=== PATIENT | male | born 1950 | race Caucasian/White ===

== ENCOUNTER 2024-02-10 13:40 | Outpatient (CLI) | payer MEDICARE, SELFPAY ==
--- NOTE | 2024-02-10 14:51 | ECG_ITS ---
Test Date: 2024-02-10 15:08:19 Measurements Intervals Basile Rate: 57 P: -28 TN: 217 QRS: 63 QRSD: 105 T: 44 QT: 404 QTc: 394 Interpretive Statements SINUS BRADYCARDIA WITH FIRST DEGREE AV BLOCK No previous ECG available for comparison Electronically Signed On 02-11-2024 11:36:11 CDT by Pieter Bourne M.D.
[2024-02-10 15:30] LABS: Basophils Absolute Auto 0.1 K/mm3 (0.0-0.1); Basophils Percent Auto 0.9 % (0.2-1.2); Eosinophils Absolute Auto 0.3 K/mm3 (0-0.3); Eosinophils Percent Auto 3.6 % (0-4.4); Hematocrit 47.5 % (42.0-52.0); Hemoglobin 16.3 g/dL (14.0-18.0); Immature Granulocyte Absolute 0.02 K/mm3 (0.00-0.031); Immature Granulocyte Percent A 0.2 % (0-0.5); Lymphocytes Absolute Auto 3.19 K/mm3 (0.9-3.2); Lymphocytes Percent Auto 35.9 % (18.3-44.2); Mean Corpuscular HGB Conc 34.3 g/dl (32-36); Mean Corpuscular Volume 87.3 fl (80-100); Mean Platelet Volume 9.8 fl (7.4-10.4); Monocytes Absolute Auto 0.8 K/mm3 (0.1-0.6); Monocytes Percent Auto 8.7 % (2.6-8.5); Neutrophils Absolute Auto 4.5 K/mm3 (1.3-6.7); Neutrophils Percent Auto 50.7 % (45.5-73.1); Platelet Count Result 262 k/mm3 (150-375); Red Blood Count 5.44 M/mm3 (4.6-6.20); Red Cell Distribution Width 14.2 % (11.5-14.5); White Blood Count 8.9 K/mm3 (4.5-10.0)
[2024-02-10 15:39] LABS: Albumin Level 4.4 g/dL (3.5-5.1); Anion Gap 8 mmol/L (4-12); Blood Urea Nitrogen 21 mg/dL (9-20); Calcium 9.7 mg/dL (8.4-10.2); Carbon Dioxide 28 mmol/L (22-30); Chloride 100 mmol/L (98-107); Estimated Glomerular Filt Rate > 60; Glucose 125 mg/dL (65-110); Potassium 4.1 mmol/L (3.4-5.0); Sodium 136 mmol/L (137-145)
[2024-02-10 15:44] LABS: Urine Cotinine NEGATIVE
[2024-02-10 16:50] LABS: Hemoglobin A1C 6.8 % (<5.7)
== END 2024-02-10 13:41 | disposition home or self-care (01) ==
LOC: ANHSURGERY 13:45
PROVIDERS: PCP Family Medicine; Visit Provider Orthopaedic Surgery
DX: M16.11 Unilateral primary osteoarthritis, right hip (principal); Z01.818 Encounter for other preprocedural examination; I44.0 Atrioventricular block, first degree
CPT/HCPCS: 80048; 80307; 82040; 83036; 85025; 87081; 93005

== ENCOUNTER 2024-02-29 00:39 | Day surgery (SDC) | payer MEDICARE, SELFPAY ==
--- NOTE | 2024-02-10 14:24 | PC.NURSE ---
Report to the Outpatient Waiting Room, entrance under the green pavilion located off [facility], at time __6 AM on date _02/29/24 . Planned Procedure Time: __7:30 AM .? Time changes happen often and if your time is changed the preop area will call you the afternoon before. - You and your visitor will be asked to self-screen and do not enter if you have any COVID symptoms. Please call surgeon if you need to reschedule. - A mask is optional within the hospital at this time. Patients may have clear liquids (water, carbonated beverages, clear teas, apple juice) until 3 hours prior to surgery ( 4:30 AM)with a maximum of 20 ounces. - No food from midnight until time of surgery and no smoking - Infants may have breast milk until 4 hours before surgery, infant formula 6 hours prior to surgery. - Children will be allowed to drink immediately following surgery.? If applicable, please bring a bottle or sippy cup to assist with drinking. Juice, water, soda, and popsicles are readily available.? For infants on formula, please bring formula the day of surgery.? Pacifiers are allowed. Take only the following medications with a SIP of water on the morning of surgery: AMLODIPINE,DULOXETINE,LEVOTHYROXINE,PROPRANOLOL DO NOT STOP ANY OF YOUR OTHER PRESCRIPTION MEDICATIONS PRIOR TO SURGERY EXCEPT THE FOLLOWING Medications to discontinue per physician ____HOLD ALL VITAMINS AND SUPPLEMENTS 3 DAYS PRE OP Date to take last dose__02/25/24 Please no make-up, nail swedish, hairspray, perfume, deodorant, or body powder the day of surgery.? No jewelry (including any body piercings) or valuables the day of surgery, leave them at home.? Please take a shower or bath the night before, or the morning of, surgery with an antibacterial soap.? Wear comfortable, loose fitting clothing.? Children are encouraged to wear pajamas. - Jewelry must be removed prior to entering the operating room.? Rings and piercings that are not removed may be cut off. - The hospital will not accept responsibility for valuables.? - Please leave all valuables, including medications, at home the day of surgery. If you are going home after surgery, a licensed trailer driver must drive you home.? - NO public transportation without another adult if you receive anesthesia. - We recommend that an adult stay with you for 24 hours following discharge. - We also recommend that you do not drive, make important decision, drink alcoholic beverages, or take any drugs that were not prescribed by your health care provider for at least 24 hours after your discharge time. Follow any additional instructions given to you from your surgeon. VERBAL AND WRITTEN instructions given to __PATIENT and asked if any additional questions and then verbalized understanding. Patient advised to call surgeon office or pre surgery nurse liaison [phone] if any additional questions.
[2024-02-10 14:46] VITALS: BP 136/82; PULSE 63; RESP 18; TEMP 36.9; O2SAT 97
--- NOTE | 2024-02-26 07:19 | P.HP_ITS ---
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 Patient has been having slowly progress findings symptoms in the right for approximately 10 years. Most the pain is in the anterior lateral aspect of the hip. At this point he has been having rather significant symptoms the last 2-3 months. He is finding it difficult on a daily basis to do activities due to pain. He does walk with a limp at times due to the pain. He does take Aleve on a p.r.n. basis. Patient has advanced osteoarthritis in the right hip. He feels at this point he is ready proceed with total hip arthroplasty. Review of Systems Review of Systems: All systems reviewed & are unremarkable except as noted in HPI and below PMFSH Past Medical History Medical History (Updated 02/07/24 @ 12:04 by Doug Salmeron MD) Cancer Surgical History Surgical History (Updated 02/05/24 @ 09:38 by Mana Busby CMA) History of back surgery History of cholecystectomy History of knee surgery History of thyroid surgery History of toe surgery Family History Family History (Updated 02/05/24 @ 09:37 by Mana Busby CMA) Mother Hypertension Father Hypertension Heart disease Grandparent Heart disease Social History Social History (Updated 02/05/24 @ 09:41 by Kely Romero 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) Smoking status: Never smoker Additional smoking assessment comments: DENIES ANY FORM OF TOBACCO USE Alcohol intake: never Substance use: never Current Housing: Decline to Answer Concerned About Future Housing: Decline to Answer Difficulty Paying Gas/Electric Bills: Decline to Answer Difficulty Paying for Meds: Decline to Answer Currently Unemployed: Decline to Answer Education: Decline to Answer Difficulty w/ Childcare or Family Care: Decline to Answer Living arrangements: with family Spiritual care concerns: No Meds Home Medications and Allergies Home Medications Medication Instructions Recorded Confirmed Type allopurinol 300 mg tablet 300 mg PO DAILY 02/05/24 02/10/24 History amlodipine 10 mg tablet 10 mg PO DAILY 02/05/24 02/10/24 History chlorthalidone 25 mg tablet 12.5 mg PO DAILY 02/05/24 02/10/24 History duloxetine 60 mg capsule,delayed 60 mg PO DAILY JOINT PAIN 02/05/24 02/10/24 History release lisinopril 40 mg tablet 40 mg PO DAILY 02/05/24 02/10/24 History propranolol 60 mg tablet 60 mg PO DAILY 02/05/24 02/10/24 History rosuvastatin 5 mg tablet 5 mg PO DAILY 02/05/24 02/10/24 History zolpidem 10 mg tablet 10 mg PO QHS 02/05/24 02/10/24 History coQ10 (ubiquinol) 200 mg capsule 200 mg PO DAILY 02/10/24 02/10/24 History cyanocobalamin (vitamin B-12) 1,000 mcg PO DAILY 02/10/24 02/10/24 History 1,000 mcg tablet levothyroxine 175 mcg tablet 175 mcg PO DAILY 02/10/24 02/10/24 History melatonin 10 mg tablet 10 mg PO HS PRN Insomnia 02/10/24 02/10/24 History Allergies Allergy/AdvReac Type Severity Reaction Status Date / Time No Known Allergies Allergy Unverified 02/10/24 13:49 Exam Narrative: 73-year-old male very alert pleasant. H e is 6 ft 3 and 240 lb BMI is 29.9. His right hip range of motion is from 0-115 degrees. He lacks 10? of internal rotation shorter neutral, external rotation of 30. Negative Stinchfield maneuver. Normal abduction strength in the lateral position. No tenderness over the greater trochanter. 2+ posterior tibial and dorsalis pedis pulse. He reports mild decreased sensation in the plantar aspects of both feet. Skin around the hip and groin crease are normal. Resp: Auscultation: clear to auscultation bilaterally Cardio: Rate: regular rate Rhythm: regular rhythm Assessment and Plan Assessment and plan (1) Primary osteoarthritis of right hip: Code(s): M16.11 - Unilateral primary osteoarthritis, right hip Status: Acute Assessment and Plan: 73-year-old male who has severe osteoarthritis the right hip with significant symptoms at this point. Pain is affecting his daily lifestyle. Patient feels this point he is ready proceed with total hip arthroplasty. Surgical procedures well as risks and complications were discussed in detail and all questions were answered we will proceed. He will see his primary care doctor for pre-surgical clearance. Patient's nasal swab was negative. Hemoglobin 16.3 and platelets were 262. Creatinine is 1.00. Patient's A1c was elevated at 6.8. Patient's primary care doctor was made aware of this. We will have the patient on extended antibiotics postoperatively.
[2024-02-29] VITALS (11 sets, daily range): BP systolic 103–138; BP diastolic 56–75; PULSE 58–84; RESP 11–20; TEMP 36.2–37.1; O2SAT 92–99; BMI 30.2
--- NOTE | ~2024-02-29 | XR_ITS ---
EXAMINATION: XR surgery orthopedic DATE: 02/29/2024 11:02 INDICATION: Intraoperative evaluation during right total hip arthroplasty TECHNIQUE: 2 fluoroscopic images of the right were obtained during procedure performed by Dr. Salmeron . Radiologist was not present for the imaging or procedure. The amount of fluoroscopy time used durin g this procedure was 1.0 minutes. Total DAP was 0.509 mGym^2 COMPARISON: None. FINDINGS: Intraoperative image during a right total hip arthroplasty demonstrate placement of a noncemented rig ht total hip arthroplasty which is in near-anatomic alignment. No fracture identified. IMPRESSION: 1. Expected appearance during right total hip arthroplasty. See procedure note for further detail. Reviewed, dictated and finalized at location B. RAFT INSPECTOR
--- NOTE | ~2024-02-29 | XR_ITS ---
EXAMINATION: XR hip RT 1V w AP pelvis DATE: 02/29/2024 11:32 INDICATION: As post right total hip arthroplasty TECHNIQUE: Anteroposterior view of the pelvis and cross-table lateral views of the right hip were obt ained. COMPARISON: 01/26/2024 FINDINGS: New right total hip arthroplasty which appears well seated in near-anatomic alignment. No fracture. M oderate osteoarthritis at the left hip. IMPRESSION: 1. Expected appearance of a right total hip arthroplasty. 2. Moderate left hip osteoarthritis. Reviewed, dictated and finalized at location B. WRITER MECHANIC
[2024-02-29] MEDS: LACTATED RINGERS 1,000 ML 30 ML IV CONT ×2 (06:35→11:25)
[2024-02-29] MEDS: VANCOMYCIN 1,750 MG/NS 500 ML 1,750 MG/500 ML BAG 250 MG IVPB (06:35)
[2024-02-29] MEDS: ACETAMINOPHEN 500 MG TABLET 1000 MG PO (06:35)
[2024-02-29] MEDS: TRANEXAMIC ACID 1,000MG/ISO100 1,000 MG/100 ML BAG 200 MG IVPB (07:01)
--- NOTE | 2024-02-29 07:20 | WPDHPUPDATE1 ---
History and Physical Update Update Date/Time: 02/29/24 07:20 History and Physical has been reviewed, including an updated exam of the patient. There are NO changes in the patient's condition. Risks, benefits, and alternatives have been discussed and questions answered. Patient agrees to proceed with procedure.
--- NOTE | 2024-02-29 07:23 | P.PNAN_ITS ---
Anes - Initial Pre Proc Eval Procedure: Operation Date: 02/29/24 07:30 Proposed Procedures p Right Total Hip Arthroplasty, Anterior Approach - Doug Salmeron MD Date/Time: 02/29/24 07:23 Surgeon: Doug Salmeron MD Pre Op Diagnosis: oa right hip Patient Data Age: 73 Gender: M Height: 1.91 m Weight: 109.5 kg Last Vital Signs Temp 36.2 C L 02/29/24 06:10 Pulse 65 02/29/24 06:10 Resp 16 02/29/24 06:10 BP 130/67 02/29/24 06:10 Pulse Ox 96 02/29/24 06:10 O2 Del Method Room Air 02/29/24 06:10 Allergies Allergy/AdvReac Type Severity Reaction Status Date / Time No Known Allergies Allergy Verified 02/29/24 06:43 Home Medications Medication Instructions Recorded Confirmed Type allopurinol 300 mg tablet 300 mg PO DAILY 02/05/24 02/10/24 History amlodipine 10 mg tablet 10 mg PO DAILY 02/05/24 02/10/24 History chlorthalidone 25 mg tablet 12.5 mg PO DAILY 02/05/24 02/10/24 History duloxetine 60 mg capsule,delayed 60 mg PO DAILY JOINT PAIN 02/05/24 02/10/24 History release lisinopril 40 mg tablet 40 mg PO DAILY 02/05/24 02/10/24 History propranolol 60 mg tablet 60 mg PO DAILY 02/05/24 02/10/24 History rosuvastatin 5 mg tablet 5 mg PO DAILY 02/05/24 02/10/24 History zolpidem 10 mg tablet 10 mg PO QHS 02/05/24 02/10/24 History coQ10 (ubiquinol) 200 mg capsule 200 mg PO DAILY 02/10/24 02/10/24 History cyanocobalamin (vitamin B-12) 1,000 mcg PO DAILY 02/10/24 02/10/24 History 1,000 mcg tablet levothyroxine 175 mcg tablet 175 mcg PO DAILY 02/10/24 02/29/24 History melatonin 10 mg tablet 10 mg PO HS PRN Insomnia 02/10/24 02/29/24 History Laboratory Tests 02/29/24 06:26 Blood Type Pending Antibody Screen Pending Patient hx anesthesia problems: none Family hx anesthesia problems: none Results Review: All pre-operative results and documents have been reviewed as part of the pre- operative evaluation. [facility] Past Medical History Medical History Cancer Surgical History Surgical History History of back surgery History of cholecystectomy History of knee surgery History of thyroid surgery History of toe surgery Family History Family History Mother Hypertension Father Hypertension Heart disease Grandparent Heart disease Social History Social History Smoking status: Never smoker Additional smoking assessment comments: DENIES ANY FORM OF TOBACCO USE Alcohol intake: never Substance use: never Current Housing: Decline to Answer Concerned About Future Housing: Decline to Answer Difficulty Paying Gas/Electric Bills: Decline to Answer Difficulty Paying for Meds: Decline to Answer Currently Unemployed: Decline to Answer Education: Decline to Answer Difficulty w/ Childcare or Family Care: Decline to Answer Living arrangements: with family Spiritual care concerns: No Anes - Eval Final PreProcedure Day of Procedure 02/29/24 07:23 Patient weight: obese Lungs: normal air movement Airway: Mallampati scale class II Neurological: alert and oriented Last oral intake: >/= 8 hours ASA classification: III Emergent: no Anesthetic plan: proceed Anesthesia type and monitoring: general and standard monitoring Results Review: All pre-operative results and documents have been reviewed as part of the pre- operative evaluation. Informed Consent: The patient's anesthetic plan and its attendant risks and benefits were discussed with the patient/family/POA. Questions were solicited and answers provided to the satisfaction of the patient/family/POA.
[2024-02-29] MEDS: ceFAZolin 2 GM/D5W 50 ML 2 GM/50 ML BAG IVPB ×3 (07:37→23:58)
[2024-02-29] MEDS: SODIUM CHLORIDE 0.9% IV 37.7 ML, MORPHINE SULFATE INJ (*CRX) 2 MG, ROPivacaine HCL 1% 2... INFILTRATE (08:08)
[2024-02-29] MEDS: ceFAZolin SODIUM 1 GM VIAL 3 GM (08:09)
[2024-02-29] MEDS: TRANEXAMIC ACID 1,000 MG/10 ML AMPUL 1000 MG IV PUSH (10:51)
[2024-02-29] MEDS: ceFAZolin SODIUM 1 GM VIAL 2 GM IV PUSH (10:53)
--- NOTE | 2024-02-29 11:07 | W.PM.PROC2 ---
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 He received 2 g Ancef weight based vancomycin 1 g of TXA preoperatively. Boots were applied the feet, SCDs applied the calves and running during the procedure the, Bethea catheter was placed and he was transferred to the [facility] table and the right hip was prepped draped usual fashion. A 10 cm longitudinal incision was made starting 3 cm lateral to the ASIS. Dissection was carried down to the fascia over the tensor fascia dodie which was longitudinally incised and elevated off the anterior half of the tensor fascia dodie muscle. Interval between tensor and rectus femoris developed an crossing branches of ascending lateral femoral circumflex vessels were isolated ligated with suture and divided. Three plaque retractor was placed anteromedial to the capsule the hip abducted internally rotated in the gluteus minimus elevated off the lateral capsule. Inverted T capsulotomy was performed. Femoral neck osteotomy made according to preoperative templating. A napkin ring of bone was removed. Femoral head was removed. It measured 55 mm diameter was severely arthritic. The acetabulum was exposed and provisional removal of osteophytes performed. He had fractured anterior superior osteophyte which was removed. A provisional removal of very large inferior osteophyte was removed. The leg was externally rotated extended and the interval between conjoined tendon and piriformis incised allowing the conjoined tendon to recess a little bit. This seemed to give adequate exposure. The leg back in the horizontal position externally rotated and traction acetabulum was exposed. We medialized with a 48 Reamer and reamed up to 57 which reached the periphery at the equator anteriorly and posteriorly. A light reaming with a 58 was performed as we could not get the 57 trial to sit. The 58 pinnacle cup was chosen and impacted with an excellent press fit. Using fluoroscopy, this was placed at 40? of abduction and anteversion matching his anatomy. A single screw was placed in the ilium and the 36 inner diameter liner placed without difficulty. Additional osteophytes removed from the anterior rim, superiorly and inferiorly at this time. The leg was externally rotated extended with the table hook elevating the femur and we broached up to a size 8 which had torsional play and the 9 had no torsional play. An intraoperative x-ray was obtained with the 1.5 head which showed equal leg lengths and soft tissue tension with the 1.5 was appropriate. The calcar was planed and we confirmed again complete torsional stability of the size 9 Actis broach and we placed the size 9 Actis high offset stem which seated fully with an excellent Press-Fit. No cracks in the calcar. We trialed with the +5 which was too tight I felt and we trialed again with a 1.5 which had appropriate soft tissue tension and normal stability. We placed a 1.5 by 36 mm ceramic head onto the clean and dried trunnion after thorough irrigation of the wound and drying of the trunnion. Hip was reduced stability reconfirmed intraoperative x-ray confirmed appropriate position of the implants without radiographic complication. Local anesthetic cocktail was injected into the periarticular soft tissues. The superior limb of the capsulotomy was approximated with 2. Vicryl. The fascia closed with 1. Vicryl and a drain placed deep in the subcu skin closed with 2 subcutaneous Vicryl and glue. EBL was 550 cc and 250 cc were given back as Cell Saver. Two additional g of Ancef and 1 g of TXA given time wound closure. I felt bone quality was very good and sufficient to allow weight-bearing as tolerated postoperatively. He was transferred postop recovery room in stable condition. No known complications. [facility] Billing Surgery - Charge Forward: Surgery Billing (Right total hip arthroplasty)
--- NOTE | 2024-02-29 11:32 | PM.OP ---
Procedure Note - Brief Procedure Note - Brief Date of procedure: 02/29/24 oa right hip Procedure performed: Right anterior total hip arthroplasty Surgeon: JESSICA Miller Findings: 73-year-old male who underwent right anterior total hip arthroplasty on 02/28. I was involved in the procedure including positioning the patient on the OR table and 1st assisting through the time of surgery. Total time spent was 4 hours
[2024-02-29] MEDS: KETOROLAC 15 MG/ML VIAL (*BKC) IV PUSH (11:42)
--- NOTE | 2024-02-29 12:30 | ADMGEN ---
This patient, Conner Darling, was admitted to 2 Medical Room 240-01. Patient/family oriented to hospital policies and general routines including ID bracelet, bed and alarms, visiting hours, pain management, procedures, bathroom and other care routines, personal items, smoking policy, room service/diet, and visiting hours. Information on how to activate the Rapid Response Team has been discussed. Patient/Family are encouraged to report perceived risks to care and to ask questions if they do not understand what they are told or what they should do.
[2024-02-29] MEDS: SODIUM CHLORIDE 0.9% IV 1,000 ML 125 ML IV CONT (12:41)
[2024-02-29] MEDS: oxyCODONE HCL (*CRX) 5 MG TAB IR PO ×3 (12:42→20:12)
[2024-02-29] MEDS: ACETAMINOPHEN 325 MG TABLET 650 MG PO ×3 (12:42→20:12)
--- NOTE | 2024-02-29 12:47 | P.CONIM_ITS ---
Assessment and Plan Assessment and plan (1) Primary osteoarthritis of right hip: Code(s): M16.11 - Unilateral primary osteoarthritis, right hip Status: Acute Assessment and Plan: Per Primary Service: 73-year-old male who has severe osteoarthritis the right hip with significant symptoms at this point. Pain is affecting his daily lifestyle. Patient feels this point he is ready proceed with total hip arthroplasty. Surgical procedures well as risks and complications were discussed in detail and all questions were answered we will proceed. He will see his primary care doctor for pre-surgical clearance. Patient's nasal swab was negative. Hemoglobin 16.3 and platelets were 262. Creatinine is 1.00. Patient's A1c was elevated at 6.8. Patient's primary care doctor was made aware of this. We will have the patient on extended antibiotics postoperatively. (2) HTN (hypertension): Code(s): I10 - Essential (primary) hypertension Status: Acute Assessment and Plan: Selective medications restarted by primary service. Monitor BP and consider restarting remaining medications (3) Hypothyroidism: Code(s): E03.9 - Hypothyroidism, unspecified Status: Acute Assessment and Plan: Continue levothyroxine (4) Elevated hemoglobin A1c measurement: Code(s): R73.09 - Other abnormal glucose Status: Acute Assessment and Plan: Noted on pre-op labs. No current diabetes meds. ACHS fingerstick glucose with moderate SSI Carb consistent diet starting with dinner Patient refused supplemental insulin and RN/Hospitalist both explained the reason for the order and risks of uncontrolled blood sugar. HPI Date of Consult Consult date: 02/29/24 Requesting Physician: Doug Salmeron MD Primary Care Provider: Jocelyn Guillermo MD Consult Narrative Reason for consult: Medical management Narrative: Conner Darling is a 73 year old male who underwent right total hip replacement today. Patient has a past medical history that includes gout, HTN, osteoarthritis, hypothyroidism, HLD and sleep disturbances. Patient was recently informed he had elevated hemoglobin A1c/diabetes but he is not yet taking any medication for blood sugar control. Patient reports that because he had an anterior approach surgery, he is not anticipating having to do formal PT/OT on discharge. Patient refused supplemental insulin as ordered, states that he is going to be discharged tomorrow and will call his PCP. We explained that keeping sugar controlled is important for wound healing and to decrease ch ance of infection. Review of Systems Review of Systems: All systems reviewed & are unremarkable except as noted in HPI and below PMFSH Past Medical History Medical History Cancer Elevated hemoglobin A1c measurement HTN (hypertension) Hypothyroidism Surgical History Surgical History History of back surgery History of cholecystectomy History of knee surgery History of thyroid surgery History of toe surgery Family History Family History Mother Hypertension Father Hypertension Heart disease Grandparent Heart disease Social History Social History Smoking status: Never smoker Additional smoking assessment comments: DENIES ANY FORM OF TOBACCO USE Alcohol intake: never Substance use: never Do You Feel Safe in your Home?: Yes Lack of Transportation: No Lack of Food: Never True Current Housing: I Have Housing Concerned About Future Housing: Decline to Answer Difficulty Paying Gas/Electric Bills: Decline to Answer Difficulty Paying for Meds: Decline to Answer Currently Unemployed: Decline to Answer Education: Decline to Answer Difficulty w/ Childcare or Family Care: Decline to Answer Living arrangements: with family Spiritual care concerns: No Meds Home Medications and Allergies Home Medications Medication Instructions Recorded Confirmed Type allopurinol 300 mg tablet 300 mg PO DAILY 02/05/24 02/10/24 History amlodipine 10 mg tablet 10 mg PO DAILY 02/05/24 02/10/24 History chlorthalidone 25 mg tablet 12.5 mg PO DAILY 02/05/24 02/10/24 History duloxetine 60 mg capsule,delayed 60 mg PO DAILY JOINT PAIN 02/05/24 02/10/24 History release lisinopril 40 mg tablet 40 mg PO DAILY 02/05/24 02/10/24 History propranolol 60 mg tablet 60 mg PO DAILY 02/05/24 02/10/24 History rosuvastatin 5 mg tablet 5 mg PO DAILY 02/05/24 02/10/24 History zolpidem 10 mg tablet 10 mg PO QHS 02/05/24 02/10/24 History coQ10 (ubiquinol) 200 mg capsule 200 mg PO DAILY 02/10/24 02/10/24 History cyanocobalamin (vitamin B-12) 1,000 mcg PO DAILY 02/10/24 02/10/24 History 1,000 mcg tablet levothyroxine 175 mcg tablet 175 mcg PO DAILY 02/10/24 02/29/24 History melatonin 10 mg tablet 10 mg PO HS PRN Insomnia 02/10/24 02/29/24 History Allergies Allergy/AdvReac Type Severity Reaction Status Date / Time No Known Allergies Allergy Verified 02/29/24 06:43 Vital Signs Vital Signs - 24 hr 02/29/24 06:10 02/29/24 11:25 02/29/24 11:30 Temperature 36.2 C L 36.2 C L Pulse Rate 65 58 L Respiratory Rate 16 11 L Blood Pressure 130/67 114/61 Pulse Oximetry 96 94 95 Oxygen Delivery Room Air Simple Face Mask Simple Face Mask Oxygen Flow Rate 8 8 02/29/24 11:40 02/29/24 11:55 02/29/24 12:10 Temperature 36.5 C Pulse Rate 68 59 L 68 Respiratory Rate 12 12 20 Blood Pressure 109/65 119/69 103/67 Pulse Oximetry 98 99 95 Oxygen Delivery Simple Face Mask Room Air Room Air Oxygen Flow Rate 8 02/29/24 12:35 Temperature 36.4 C Pulse Rate 63 Respiratory Rate 14 Blood Pressure 136/61 Pulse Oximetry 96 Oxygen Delivery Oxygen Flow Rate Exam Narrative: GENERAL: Well-appearing, well-nourished, and in no acute distress. HEAD: Normocephalic, atraumatic. ENT:? Mucous membranes moist. CHEST: Clear to auscultation.? No respiratory distress. HEART: Regular rate and rhythm. ? Normal peripheral pulses. ABDOMEN: Soft, nontender, nondistended. EXTREMITIES: Right hip surgical site dressing in place SKIN: Warm dry normal color NEURO: Alert and oriented x3. PSYCH: Normal mood and affect Results Pulse Oximetry SpO2 results: 92-99% on room air Attestation: I personally reviewed and interpreted this pulse oximetry as follows: Interpretation: no need for supplemental oxygenation at this time Imaging Radiologist's impression: EXAMINATION: XR hip RT 1V w AP pelvis DATE: 02/29/2024 11:32 INDICATION: As post right total hip arthroplasty TECHNIQUE: Anteroposterior view of the pelvis and cross-table lateral views of the right hip were obtained. COMPARISON: 01/26/2024 FINDINGS: New right total hip arthroplasty which appears well seated in near-anatomic alignment. No fracture. Moderate osteoarthritis at the left hip. IMPRESSION: 1. Expected appearance of a right total hip arthroplasty. 2. Moderate left hip osteoarthritis. Reviewed, dictated and finalized at location B. OGICAL INSPECTOR Quality VTE Prophylaxis VTE prophylaxis: mechanical ordered and pharmacologic ordered (per primary service) Hospitalist MIPS Advance Care Plan I have confirmed that the patient's Advanced Care Plan is present, code status is documented, or surrogate decision maker is listed in patient medical record.: Yes Medication Reconciliation I have utilized all available resources to obtain, update and review the patients current medications (includes all prescriptions, OTC, herbals, cannabis, and nutritional supplements).: Yes
[2024-02-29] MEDS: SENNA/DOCUSATE SODIUM TABLET 2 TAB PO (16:33)
[2024-02-29 16:38] LABS: Glucose Point of Care 260 mg/dl (65-105)
[2024-02-29] MEDS: KETOROLAC 15 MG/ML VIAL (*BKC) 7.5 MG IV PUSH ×2 (17:30→23:58)
[2024-02-29] MEDS: VANCOMYCIN 1,000 MG/NS 250 ML 1,000 MG/250 ML BAG 125 MG IVPB (17:31)
[2024-02-29] MEDS: FAMOTIDINE 20 MG TABLET PO (20:12)
[2024-02-29 23:05] LABS: Glucose Point of Care 195 mg/dl (65-105)
[2024-03-01] MEDS: oxyCODONE HCL (*CRX) 5 MG TAB IR PO ×2 (00:33→05:06)
[2024-03-01] MEDS: ACETAMINOPHEN 325 MG TABLET 650 MG PO ×3 (00:33→08:40)
[2024-03-01 01:56] VITALS: BP 123/61; PULSE 77; RESP 18; O2SAT 95
[2024-03-01] MEDS: VANCOMYCIN 1,000 MG/NS 250 ML 1,000 MG/250 ML BAG 250 MG IVPB (05:07)
[2024-03-01 05:33] LABS: Basophils Percent Auto 0.2 % (0.2-1.2); Hematocrit 39.3 % (42.0-52.0); Hemoglobin 13.1 g/dL (14.0-18.0); Immature Granulocyte Absolute 0.08 K/mm3 (0.00-0.031); Immature Granulocyte Percent A 0.4 % (0-0.5); Lymphocytes Absolute Auto 1.91 K/mm3 (0.9-3.2); Lymphocytes Percent Auto 10.6 % (18.3-44.2); Mean Corpuscular HGB Conc 33.3 g/dl (32-36); Mean Corpuscular Hemoglobin 29.8 pg (26-34); Mean Corpuscular Volume 89.3 fl (80-100); Monocytes Absolute Auto 1.4 K/mm3 (0.1-0.6); Monocytes Percent Auto 7.8 % (2.6-8.5); Neutrophils Absolute Auto 14.7 K/mm3 (1.3-6.7); Platelet Count Result 228 k/mm3 (150-375); Red Cell Distribution Width 13.9 % (11.5-14.5); White Blood Count 18.1 K/mm3 (4.5-10.0)
[2024-03-01 05:46] LABS: Anion Gap 9 mmol/L (4-12); Blood Urea Nitrogen 24 mg/dL (9-20); Calcium 8.5 mg/dL (8.4-10.2); Carbon Dioxide 23 mmol/L (22-30); Chloride 101 mmol/L (98-107); Estimated CRCL calculation 62 ml/min; Estimated Glomerular Filt Rate > 60; Glucose 148 mg/dL (65-110); Sodium 133 mmol/L (137-145)
[2024-03-01 06:05] VITALS: BP 140/73; PULSE 73; RESP 20; TEMP 36.7; O2SAT 96
[2024-03-01] MEDS: LEVOTHYROXINE SODIUM 75 MCG TABLET PO (06:23)
[2024-03-01] MEDS: LEVOTHYROXINE SODIUM 100 MCG TABLET PO (06:23)
--- NOTE | 2024-03-01 06:48 | PM.PNORT ---
Subjective Subjective Date/Time Seen: 03/01/24 06:48 Interval history: Postop day 1 patient is alert. He is afebrile vital signs are stable. Morning labs are noted. Patient was up yesterday walking with physical therapy and is comfortable. Pain is well controlled. Drain is out. Neurovascularly he is intact. He has been to the restroom multiple times in urinating well. Overall he feels good and is eager to go home. We will have the patient work with therapy this morning and once IV antibiotics have been completed he will be discharged home later this morning Objective Data Vital Signs Vital Signs: Vital Signs - 24 hr 02/29/24 11:25 02/29/24 11:30 02/29/24 11:40 Temperature 97.2 F L Pulse Rate 58 L 68 Respiratory Rate 11 L 12 Blood Pressure 114/61 109/65 Pulse Oximetry 94 95 98 Oxygen Delivery Simple Face Mask Simple Face Mask Simple Face Mask Oxygen Flow Rate 8 8 8 02/29/24 11:55 02/29/24 12:10 02/29/24 12:35 Temperature 97.7 F 97.6 F Pulse Rate 59 L 68 63 Respiratory Rate 12 20 14 Blood Pressure 119/69 103/67 136/61 Pulse Oximetry 99 95 96 Oxygen Delivery Room Air Room Air Oxygen Flow Rate 02/29/24 13:10 02/29/24 14:03 02/29/24 14:22 Temperature 97.8 F Pulse Rate 76 Respiratory Rate 14 Blood Pressure 127/56 L Pulse Oximetry 92 Oxygen Delivery Room Air Room Air Oxygen Flow Rate 02/29/24 14:55 02/29/24 18:05 02/29/24 21:06 Temperature 98.3 F Pulse Rate 78 84 Respiratory Rate 14 20 Blood Pressure 138/63 131/75 Pulse Oximetry 98 95 Oxygen Delivery Room Air Oxygen Flow Rate 02/29/24 23:00 03/01/24 01:56 03/01/24 06:05 Temperature 98.7 F 98.1 F Pulse Rate 83 77 73 Respiratory Rate 18 18 20 Blood Pressure 131/67 123/61 140/73 Pulse Oximetry 93 95 96 Oxygen Delivery Oxygen Flow Rate Intake/Output Intake/Output: Intake & Output 02/27/24 02/28/24 02/29/24 03/01/24 23:59 23:59 23:59 23:59 Intake Total 1290 1300 Output Total 40 560 Balance 1250 740 Meds/Results Medications: Active Medications Generic Name Dose Route Start Last Admin Trade Name Freq PRN Reason Stop Dose Admin Acetaminophen 650 mg 02/29/24 13:00 03/01/24 05:06 Acetaminophen 325 Mg Tablet PO 650 mg Q4HR ANDRE Administration Allopurinol 300 mg 03/01/24 09:00 Allopurinol 300 Mg Tablet PO DAILY ANDRE Amlodipine Besylate 10 mg 03/01/24 09:00 Amlodipine Besylate 10 Mg Tablet PO DAILY ANDRE Apixaban 2.5 mg 03/01/24 09:00 Apixaban 2.5 Mg Tablet PO Q12HR ANDRE Celecoxib 200 mg 03/01/24 09:00 Celecoxib 200 Mg Capsule PO DAILY ANDRE Cephalexin HCl 500 mg 03/01/24 12:00 Cephalexin 500 Mg Capsule PO Q6HR ANDRE Chlorthalidone 12.5 mg 03/01/24 09:00 Chlorthalidone 12.5 Mg Tab PO DAILY ANDRE Dextrose 12.5 gm 02/29/24 13:14 Dextrose 50% 25 Gm/50 Ml Syringe IV PUSH PRN PRN Hypoglycemia Protocol Famotidine 20 mg 02/29/24 21:00 02/29/24 20:12 Famotidine 20 Mg Tablet PO 20 mg Q12HR ANDRE Administration Glucagon 1 mg 02/29/24 13:14 Glucagon For Inj 1 Mg Vial IM PRN PRN Hypoglycemia Protocol Glucose 15 gm 02/29/24 13:14 Glucose Oral Gel 15 Gm Of Glucse In 37.5 Gm Tube PO PRN PRN Hypoglycemia Protocol Cefazolin Sodium 2 gm in 50 mls @ 100 mls/hr 02/29/24 16:00 03/01/24 00:28 Ancef 2 Gm/D5w 50 Ml IVPB 03/01/24 08:29 Infused Q8H ANDRE Infusion Vancomycin HCl 1,000 mg in 250 mls @ 250 mls/hr 02/29/24 18:00 03/01/24 06:07 Vancomycin 1,000 Mg/Ns 250 Ml IVPB 03/01/24 06:59 Infused Q12H ANDRE Infusion Dextrose 1,000 mls @ 100 mls/hr 02/29/24 13:14 Dextrose 5% 1,000 Ml IVPB PRN PRN Hypoglycemia Protocol Insulin Aspart 3 - 6 units 02/29/24 17:00 02/29/24 16:54 Insulin Aspart (*Bkc) 100 Units/Ml SUB-Q Not Given TIDWM [facility] Protocol Levothyroxine Sodium 100 mcg 03/01/24 06:30 03/01/24 06:23 Levothyroxine Sodium 100 Mcg Tablet PO 100 mcg DAILY@0630 [facility] Administration Levothyroxine Sodium 75 mcg 03/01/24 06:30 03/01/24 06:23 Levothyroxine Sodium 75 Mcg Tablet PO 75 mcg DAILY@0630 [facility] Administration Morphine Sulfate 2 mg 02/29/24 12:20 Morphine Sulfate (*Crx) 2 Mg/Ml Inj IV PUSH Q2H PRN Breakthrough Pain Rated 4-6 or NPO Naloxone HCl 0.1 mg 02/29/24 12:20 Naloxone Hcl 0.4 Mg/Ml Vial IV PUSH Q2M PRN Opiate Reversal Ondansetron HCl 4 mg 02/29/24 12:20 Ondansetron Inj 4 Mg/2 Ml Vial IV PUSH Q4H PRN Nausea And Vomiting Oxycodone HCl 5 mg 02/29/24 13:00 03/01/24 05:06 Oxycodone Hcl (*Crx) 5 Mg Tab Ir PO 5 mg Q4H ANDRE Administration Oxycodone HCl 5 mg 02/29/24 12:20 Oxycodone Hcl (*Crx) 5 Mg Tab Ir PO Q4H PRN Pain Rated 7-10 Polyethylene Glycol 17 gm 03/01/24 09:00 Polyethylene Glycol 3350 17 Gm Powd.Pack PO QAM [facility] Propranolol HCl 60 mg 03/01/24 09:00 Propranolol Hcl 60 Mg Capsule Cr PO DAILY [facility] Rosuvastatin Calcium 5 mg 03/01/24 09:00 Rosuvastatin 5 Mg Tablet PO DAILY [facility] Senna/Docusate Sodium 2 tab 02/29/24 17:00 02/29/24 16:33 Senna/Docusate Sodium Tablet PO 2 tab BID [facility] Administration Radiology Results: ITS Impressions Intraoperative X-Ray 02/29/24 11:05 IMPRESSION: 1. Expected appearance during right total hip arthroplasty. See procedure note for further detail. Hip/Pelvis X-Ray 02/29/24 12:49 IMPRESSION: 1. Expected appearance of a right total hip arthroplasty. 2. Moderate left hip osteoarthritis. Labs Labs: Laboratory Results - last 24 hr 02/29/24 02/29/24 02/29/24 06:26 16:35 22:55 WBC RBC Hgb Hct MCV MCH MCHC RDW Plt Count MPV Immature Gran % (Auto) Neut % (Auto) Lymph % (Auto) [place] % (Auto) Eos % (Auto) Baso % (Auto) Lymph # (Auto) [place] # (Auto) Eos # (Auto) Baso # (Auto) Abs Immat Gran (auto) Absolute Neuts (auto) Absolute Nucleated RBC Nucleated RBC % Sodium Potassium Chloride Carbon Dioxide Anion Gap BUN Creatinine Estim Creat Clear Calc Estimated GFR Glucose POC Capillary Glucose 260 H 195 H Calcium Blood Type B Positive Antibody Screen Negative 03/01/24 03/01/24 04:51 04:52 WBC 18.1 H RBC 4.40 L Hgb 13.1 L D Hct 39.3 L MCV 89.3 MCH 29.8 MCHC 33.3 RDW 13.9 Plt Count 228 MPV 10.0 Immature Gran % (Auto) 0.4 Neut % (Auto) 81.0 H Lymph % (Auto) 10.6 L [place] % (Auto) 7.8 Eos % (Auto) 0.0 Baso % (Auto) 0.2 Lymph # (Auto) 1.91 [place] # (Auto) 1.4 H Eos # (Auto) 0.0 Baso # (Auto) 0.0 Abs Immat Gran (auto) 0.08 H Absolute Neuts (auto) 14.7 H Absolute Nucleated RBC 0.000 Nucleated RBC % 0.0 Sodium 133 L Potassium 4.0 Chloride 101 Carbon Dioxide 23 Anion Gap 9 BUN 24 H Creatinine 1.10 Estim Creat Clear Calc 62 Estimated GFR > 60 Glucose 148 H POC Capillary Glucose Calcium 8.5 Blood Type Antibody Screen
--- NOTE | 2024-03-01 06:53 | PM.DS ---
DS: Admitting Diagnosis Discharge Date 03/01 Admitting Diagnosis Right hip DJD DS: Discharge Diagnosis Discharge Diagnosis (1) Primary osteoarthritis of right hip: Code(s): M16.11 - Unilateral primary osteoarthritis, right hip Status: Acute DS: Summary Hospital Course Hospital Course: 73-year-old male who underwent anterior right total hip arthroplasty on 02/28. Underwent the procedure without complications. Postoperatively he has been afebrile vital signs are stable. Neurovascularly is intact. Patient was up walking the day of surgery with physical therapy and is comfortable. Pain overall is well controlled. Patient is on Eliquis for DVT prophylaxis. He is on scheduled Tylenol every 4 hours as well as oxycodone 5 mg. He is on a 10 day course of Celebrex. He is weight-bearing as tolerated. Patient has been to the restroom and urinating well postoperatively. His drain is out. Patient be discharged home on 03/01. He was advised to keep leg elevated home prevent swelling. He will go home on a 10 day course of Keflex. He has also been given Senokot and MiraLax for constipation. Patient was advised any questions or concerns he is to call the office otherwise we will see him at his appointments. Time Spent with Patient Time attestation: Total time spent providing and/or coordinating discharge services: DS: Data Data Completed and Pending Labs on day of discharge: Labs from last 24 hours 03/01/24 03/01/24 02/29/24 04:52 04:51 22:55 WBC 18.1 H RBC 4.40 L Hgb 13.1 L D Hct 39.3 L MCV 89.3 MCH 29.8 MCHC 33.3 RDW 13.9 Plt Count 228 MPV 10.0 Immature Gran % (Auto) 0.4 Neut % (Auto) 81.0 H Lymph % (Auto) 10.6 L [place] % (Auto) 7.8 Eos % (Auto) 0.0 Baso % (Auto) 0.2 Lymph # (Auto) 1.91 [place] # (Auto) 1.4 H Eos # (Auto) 0.0 Baso # (Auto) 0.0 Abs Immat Gran (auto) 0.08 H Absolute Neuts (auto) 14.7 H Absolute Nucleated RBC 0.000 Nucleated RBC % 0.0 Sodium 133 L Potassium 4.0 Chloride 101 Carbon Dioxide 23 Anion Gap 9 BUN 24 H Creatinine 1.10 Estim Creat Clear Calc 62 Estimated GFR > 60 Glucose 148 H POC Capillary Glucose 195 H Calcium 8.5 Blood Type Antibody Screen 02/29/24 02/29/24 16:35 06:26 WBC RBC Hgb Hct MCV MCH MCHC RDW Plt Count MPV Immature Gran % (Auto) Neut % (Auto) Lymph % (Auto) [place] % (Auto) Eos % (Auto) Baso % (Auto) Lymph # (Auto) [place] # (Auto) Eos # (Auto) Baso # (Auto) Abs Immat Gran (auto) Absolute Neuts (auto) Absolute Nucleated RBC Nucleated RBC % Sodium Potassium Chloride Carbon Dioxide Anion Gap BUN Creatinine Estim Creat Clear Calc Estimated GFR Glucose POC Capillary Glucose 260 H Calcium Blood Type B Positive Antibody Screen Negative Discharge Plan Discharge Patient Disposition: Home, Self-Care Discharge Instructions: DOUG SALMERON M.D [facility] [address] [place] [address] [address] [place] [address] POST-OPERATIVE DISCHARGE INSTRUCTIONS ANTERIOR TOTAL HIP ARTHROPLASTY 1. Move toes/feet up and down every hour while awake. 2. Be up walking every hour while awake. 3. Use walker multimedia coordinator if instructed to use walker multimedia coordinator.When you are allowed to use the cane, use the cane in the opposite hand. 4. When resting, do not rest in the chair. Rather, lie on your back, with back flat, and the leg elevated above heart to minimize swelling. You may put a pillow under your head. Do not rest in a chair. Resting in the chair results in swelling in the leg. Significant swelling could indicate a blood clot and if this occurs, call the office (or go to the ER) to have a venous ultrasound performed. Its ok to sit in the chair to eat and use the toilet and to receive a guest but sitting in a chair will cause your leg to swell. so try to minimize sitting in a chair. 5. Wound Care: Apply a folded 4x4 sponge to incision and hold with crossing strips of 1 inch Transpore tape. 6. May shower. Remove dressing before shower and reapply dressing after shower. 7. Patient is to make appointment with his primary care doctor for follow-up of his elevated A1c. Patient Instructions: Pain Management (DC) Follow-up/Referrals: Doug Salmeron MD [Physician] - Keep Reg. Scheduled Appt. Discharge Medications: New acetaminophen 325 mg Tablet 650 mg PO Q4HR Qty: 90 0RF Eliquis 2.5 mg Tablet 2.5 mg PO Q12HR Qty: 70 0RF celecoxib [Celebrex] 200 mg Capsule 200 mg PO DAILY Qty: 10 0RF polyethylene glycol 3350 [Miralax] 17 gram Powder In Packet 17 g PO QAM Qty: 30 0RF sennosides-docusate sodium [Senokot-S] 8.6-50 mg Tablet 2 tab PO BID Qty: 60 0RF cephalexin 500 mg Capsule 500 mg PO Q6HR Qty: 40 0RF oxycodone 5 mg Tablet 5 mg PO Q4H PRN (Reason: Pain Rated 7-10) Qty: 40 0RF Continued propranolol 60 mg tablet 60 mg PO DAILY allopurinol 300 mg tablet 300 mg PO DAILY chlorthalidone 25 mg tablet 12.5 mg PO DAILY lisinopril 40 mg tablet 40 mg PO DAILY rosuvastatin 5 mg tablet 5 mg PO DAILY duloxetine 60 mg capsule,delayed release(DR/EC) 60 mg PO DAILY amlodipine 10 mg tablet 10 mg PO DAILY levothyroxine 175 mcg tablet 175 mcg PO DAILY coQ10 (ubiquinol) 200 mg Capsule 200 mg PO DAILY melatonin 10 mg Tablet 10 mg PO HS PRN (Reason: Insomnia) cyanocobalamin (vitamin B-12) 1,000 mcg Tablet 1,000 mcg PO DAILY Discontinued zolpidem 10 mg tablet 10 mg PO QHS
[2024-03-01 07:54] LABS: Glucose Point of Care 147 mg/dl (65-105)
[2024-03-01] MEDS: ceFAZolin 2 GM/D5W 50 ML 2 GM/50 ML BAG IVPB (08:40)
[2024-03-01] MEDS: allopurinoL 300 MG TABLET PO (08:41)
[2024-03-01] MEDS: APIXABAN 2.5 MG TABLET PO (08:41)
[2024-03-01] MEDS: amLODIPine BESYLATE 10 MG TABLET PO (08:41)
[2024-03-01] MEDS: CELECOXIB 200 MG CAPSULE PO (08:42)
[2024-03-01] MEDS: SENNA/DOCUSATE SODIUM TABLET 2 TAB PO (08:42)
[2024-03-01] MEDS: CHLORTHALIDONE 12.5 MG TAB PO (08:42)
[2024-03-01 08:43] VITALS: PULSE 73
[2024-03-01] MEDS: ROSUVASTATIN 5 MG TABLET PO (08:43)
[2024-03-01] MEDS: FAMOTIDINE 20 MG TABLET PO (08:43)
[2024-03-01] MEDS: PROPRANOLOL HCL 60 MG CAPSULE CR PO (08:43)
[2024-03-01] MEDS: polyethylene glycoL 3350 17 GM POWD.PACK PO (08:43)
== END 2024-03-01 10:57 | disposition home or self-care (01) ==
LOC: ANHSURGERY 06:04 → ANH2MED 12:22
PROVIDERS: Nurse Practitioner Acute Care; Orthopaedic Surgery; Physician Assistant Surgical; PCP Family Medicine; Visit Provider Internal Medicine
PROC: (CPT 27130; principal; 2024-02-29 07:30)
DX: M16.11 Unilateral primary osteoarthritis, right hip (principal); M25.751 Osteophyte, right hip; I10 Essential (primary) hypertension; E03.9 Hypothyroidism, unspecified; R73.09 Other abnormal glucose; E66.9 Obesity, unspecified; Z68.30 Body mass index [BMI] 30.0-30.9, adult; Z98.890 Other specified postprocedural states; Z90.49 Acquired absence of other specified parts of digestive tract; Z98.1 Arthrodesis status; Z85.9 Personal history of malignant neoplasm, unspecified; Z82.49 Family history of ischemic heart disease and other diseases of the circulatory system
CPT/HCPCS: 27130; 36415; 73501; 80048; 82948; 85025; 86850; 86900; 86901; 97110; 97116; 97161; 97165; 97530; 97535; 99199; A9270; C1776; J0171; J0690; J1100; J1171; J1885; J2003; J2250; J2270; J2405; J2795; J3010; J3370; J7030; J7120